=== PATIENT | female | born 1985 | race Caucasian/White ===

== ENCOUNTER 2019-10-28 02:25 | Emergency (ER) | payer MEDICARE, MEDICAID, SELFPAY ==
--- NOTE | ~2019-10-28 | CT_ITS ---
EXAMINATION: CT brain wo con EXAM DATE: 10/28/2019 04:11 INDICATION: Altered mental status. TECHNIQUE: Spiral CT of the head was performed without contrast. Axial, coronal and sagittal images were reviewed. The dose-length product (DLP) for this examination was 756.67 mGy-cm. The exposure w as tailored according to patient size, and iterative reconstruction (ASIR) was used as additional dos e reduction technique. There is no prior study for comparison. FINDINGS: There is no acute intraparenchymal hemorrhage. No evidence of intraparenchymal brain mass lesion. No evidence of acute infarction. There is no mass effect or midline shift. The ventricles are normal in size. There are no extra-axial collections. There are no acute calvarial fractures. T he orbits are unremarkable. Soft tissue is unremarkable. The visualized sinuses and mastoid air jimmy ls are well aerated. IMPRESSION: Unremarkable head CT examination. Reviewed, dictated and finalized at location A.
[2019-10-28 02:30] VITALS: BP 123/72; PULSE 86; RESP 20; TEMP 36.6; O2SAT 97
--- NOTE | 2019-10-28 02:37 | ED.PSYCH ---
HPI - Psych General Chief Complaint: Psychiatric Symptoms Stated Complaint: Psych Evaluation Time Seen by Provider: 10/28/19 02:37 Source: patient Mode of arrival: EMS Limitations: altered mental status History of Present Illness HPI Narrative: 34-year-old woman found by local police officers at the side of the road asking for directions. She is from [place] and was found [place] of here stating that she is going to [place] demonstrating to them that she was definitely going the right direction. He had another department had reported that she made suicidal statements to an ex boyfriend but denies any suicidal ideation or homicidal ideation at this time. She states all she wants to do is go to sleep and rest. She has been reported to have bipolar disorder and schizophrenia. (She denies the latter.) She has clonazepam in her possession but there is some indication she is not taking it. Patient states that she has had hospital admissions for psychiatric care in the past. Onset (ago): hour(s) Duration: constant History of same: Yes Relieving factors: none Exacerbating factors: none Context: not taking psychiatric medications Associated psychiatric symptoms: depression Associated symptoms: confusion Treatments prior to arrival: none Related Data Home Medications Medication Instructions Recorded Confirmed carbamazepine 200 mg PO BID 10/28/19 10/28/19 clonazepam 0.5 mg PO DAILY 10/28/19 10/28/19 Allergies Allergy/AdvReac Type Severity Reaction Status Date / Time lidocaine Allergy Severe THROAT Verified 10/28/19 03:02 SWELLING erythromycin base Allergy Mild Unknown Verified 10/28/19 03:02 ketorolac Allergy Mild Unknown Verified 10/28/19 03:02 Quinolones Allergy Mild Unknown Verified 10/28/19 03:02 vancomycin Allergy Mild Unknown Verified 10/28/19 03:02 Review of Systems Constitutional: Constitutional: Denies chills and Denies fever(s) Eyes: Eyes: Denies change in vision and Denies photophobia ENT: Denies dysphagia, Denies nasal congestion and Denies sore throat Cardiovascular: Cardiovascular: Denies chest pain and Denies radiating jaw, neck or arm pain Respiratory: Respiratory: Denies cough and Denies dyspnea Gastrointestinal: Gastrointestinal: Denies abdominal pain, Denies nausea and Denies vomiting Genitourinary: Genitourinary: Denies hematuria, Denies nocturia and Denies dysuria Musculoskeletal: Musculoskeletal: Denies arthralgias and Denies joint swelling Integumentary/Breasts: Skin/Breast: Denies pruritus, Denies erythema and Denies rash Neurologic: Denies vertigo, Denies dizziness and Denies syncope Hematologic/Lymphatic: Hematologic/Lymphatic: Denies easy bleeding and Denies easy bruising Allergic/Immunologic: Allergic/Immunologic: Denies throat swelling and Denies wheezing PMFSH Past Medical History Medical History Bipolar 1 disorder Schizophrenia Surgical History Surgical History History of Social History Social History Smoking status: Current every day smoker Alcohol use details: denies Other substance usage details: denies Living arrangements: with family Exam Const: General: healthy appearing, no acute distress and alert Other: Oriented to day month and year. HENMT: Ears: external ears normal, TM's normal bilaterally and EAC's normal Mouth: Yes Normal oral and palatal mucosa present Throat: posterior oropharynx normal and uvula midline Eyes: Conjunctivae: conjunctivae normal Pupils: Equal, round and reactive pupils present EOM: EOMs intact bilaterally Neck: Neck: normal visual inspection and no meningeal signs Resp: Effort & Inspection: normal respiratory effort and not labored Auscultation: clear to auscultation bilaterally, no rales, no rhonchi and no wheezes Cardio: Rate: reg
--- NOTE | 2019-10-28 03:00 | ECG_ITS ---
Measurements Intervals [place] Rate: 78 P: 88 GA: 163 QRS: 80 QRSD: 82 T: 61 QT: 369 QTc: 422 Interpretive Statements SINUS RHYTHM WITH SINUS ARRHYTHMIA BASELINE ARTIFACT- II, III NORMAL ECG Electronically Signed On 10-28-2019 6:59:23 CDT by Kojo Paige D.O.
--- NOTE | 2019-10-28 03:06 | PC.NURSE ---
Pt. reports just wanting to sleep and that she hasn't done any drugs or drink alcohol tonight and doesn't know why she is here. ERP in to eval pt. and pt. is compliant c care and follow instructions but is very lethargic and yawning. Pt. states she just want to go to sleep.
[2019-10-28 03:10] LABS: Basophils Absolute Auto 0.02 K/mm3 (0.00-0.10); Basophils Percent Auto 0.3 % (0.0-1.0); Eosinophils Absolute Auto 0.07 K/mm3 (0.02-0.50); Eosinophils Percent Auto 0.9 % (1.0-6.0); Hematocrit 37.4 % (35.0-49.0); Hemoglobin 12.6 g/dL (12.0-15.0); Immature Granulocyte Absolute 0.02 K/mm3 (0.00-0.00); Immature Granulocyte Percent A 0.3 % (0.0-0.0); Lymphocytes Absolute Auto 1.97 K/mm3 (1.10-4.50); Lymphocytes Percent Auto 25.6 % (18.0-42.0); Mean Corpuscular HGB Conc 33.7 g/dL (32.0-36.0); Mean Corpuscular Hemoglobin 32.7 pg (27.0-31.0); Mean Corpuscular Volume 97.1 fL (78.0-102.0); Mean Platelet Volume 9.9 fl (9.2-11.8); Monocytes Absolute Auto 0.54 K/mm3 (0.10-0.90); Neutrophils Absolute Auto 5.1 K/mm3 (1.7-7.2); Neutrophils Percent Auto 65.9 % (50.0-70.0); Platelet Count Result 233 K/mm3 (150-420); Red Blood Count 3.85 M/mm3 (4.20-5.40); Red Cell Distribution Width 13.7 % (11.6-14.4); White Blood Count 7.7 K/mm3 (4.8-10.8)
[2019-10-28 03:19] LABS: Add Urine Microscopic? YES; Appearance Urine Clear (Clear); Bilirubin Urine 1+ (Negative); Blood Urine Negative (Negative); Color Urine Yellow (Yellow); Glucose Urine UA Negative (Negative); Ketones Urine 3+ (Negative); Leukocyte Esterase Ur Trace LEU/UL (Negative); Nitrate Urine Negative (Negative); Protein Urine Negative (Negative); Specific Grav Ur 1.025 (1.010-1.020)
[2019-10-28 03:21] LABS: Pregnancy On Board Control Positive; Specific Gravity Ur 1.025 (1.010-1.035); Urine Pregnancy Test Negative
[2019-10-28 03:26] LABS: Bacteria Urine 1+ /hpf; Mucus Urine Rare /lpf; Squamous Epithelial Cell Urine Rare /hpf (Few)
[2019-10-28 03:29] LABS: Amphetamine Screen Urine Negative (Negative); Barbiturate Screen Urine Negative (Negative); Benzodiazepines Screen Urine Negative (Negative); Cannabinoid Screen Urine Negative (Negative); Cocaine Screen Urine Negative (Negative); Methadone Screen Urine Negative (Negative); Opiate Screen Urine Negative (Negative); Phencyclidine Screen Urine Negative (Negative)
[2019-10-28 03:33] LABS: Alanine Aminotransferase 13 U/L (14-59); Albumin Level 3.8 g/dL (3.4-5.0); Anion Gap 12.6 mmol/L (7-16); Aspartate Amino Transferase 12 U/L (15-37); Bilirubin,Total 0.8 mg/dL (0.00-1.00); Blood Urea Nitrogen 7 mg/dL (7-18); Calcium 9.1 mg/dL (8.5-10.1); Carbon Dioxide 26 mmol/L (21-32); Chloride 101 mmol/L (98-108); Estimated CRCL calculation 103 ml/min; Estimated Glomerular Filt Rate > 60; Glucose 88 mg/dL (70-99); Osmolality Calculated 279 mOsm/kg (285-295); Potassium 3.6 mmol/L (3.5-5.1); Salicylate 2.9 mg/dL (2.8-20.0); Sodium 136 mmol/L (136-145); Thyroid Stimulating Hormone 0.94 uIU/mL (0.36-3.74); Total Protein 7.2 g/dL (6.4-8.2)
[2019-10-28 03:47] LABS: Acetaminophen 0 ug/mL (10-30); Ethanol < 3 mg/dL (0-6)
[2019-10-28 03:55] LABS: Alkaline Phosphatase 67 U/L (46-116)
--- NOTE | 2019-10-28 04:34 | PC.NURSE ---
Pt. cleared for psych evaluation and [facility] here for eval.
--- NOTE | 2019-10-28 05:50 | PC.NURSE ---
Pt. awoke crying and stating she is scared and wants to talk to someone. Pt. states she is afraid of police that were here earlier and that they are trying to get her committed. Prakash, from Mental Health here to talk c pt. and evaluate. Pt. then became verbally abusive c staff, wanting us to leave the room and wanting her dogs. Pt. not wanting to speak c staff or wanting to consent to tx. Pt. states she knows her rights and she doesn't want to stay here, she wants her dogs now. Informed pt. that her dogs are safe c police dept. and they will be returned to her p released. ERP in to speak c pt. Pt. wanting to go home. Pt. very paranoid about someone out to get her and she can't speak in clear sentences or complete answering questions when asked. Pt. keeps repeating [place] police are trying to place her somewhere.
--- NOTE | 2019-10-28 06:24 | PC.NURSE ---
Pt. now sleeping again p deciding she was done talking and didn't want to talk to counselor anymore.
[2019-10-28 07:38] VITALS: BP 125/70; PULSE 82; RESP 20; O2SAT 97
[2019-10-30 10:12] LABS: Lithium <0.15 mmol/L (0.60-1.20)
[2019-10-31 20:25] LABS: Valproic Acid <4.0 mg/L (50.0-100.0)
[2019-11-04 18:02] LABS: Carbamazepine Tegretol <0.2 mcg/mL (4.0-12.0)
== END 2019-10-28 07:52 | disposition home or self-care (01) ==
PROVIDERS: Emergency Provider Emergency Medicine
DX: R45.1 Restlessness and agitation (principal); F31.89 Other bipolar disorder; F17.200 Nicotine dependence, unspecified, uncomplicated; Z79.899 Other long term (current) drug therapy
CPT/HCPCS: 36415; 70450; 80053; 80156; 80164; 80178; 80307; 81001; 81025; 84443; 85025; 93005; 99283; 99284